=== PATIENT | female | born 2005 | race African-American/Black ===

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

== ENCOUNTER 2024-01-10 08:56 | Emergency (ER) | payer OTHER ==
[~2024-01-10] VITALS: Ht 162.6 cm; Wt 63.9 kg
[2024-01-10 11:33] VITALS: BP 130/92; TEMP 98.1; O2SAT 98
== END 2024-01-10 11:39 | disposition home or self-care (01) ==
LOC: M ED 08:56
DX: J06.9 Acute upper respiratory infection, unspecified (principal); Z88.0 Allergy status to penicillin; Z88.8 Allergy status to other drugs, medicaments and biological substances

== ENCOUNTER 2024-01-14 11:23 | Emergency (ER) | payer OTHER ==
[~2024-01-14] VITALS: Ht 165.1 cm; Wt 62.8 kg
[2024-01-14] MEDS ORDERED: VENTAER INH (14:23)
[2024-01-14 14:28] VITALS: BP 120/81; TEMP 96.9; O2SAT 100
== END 2024-01-14 14:29 | disposition home or self-care (01) ==
LOC: M ED 11:23
DX: J45.909 Unspecified asthma, uncomplicated (principal); Z88.0 Allergy status to penicillin; Z79.51 Long term (current) use of inhaled steroids

== ENCOUNTER 2024-01-28 20:37 | Emergency (ER) | payer OTHER ==
[~2024-01-28] VITALS: Ht 163.8 cm; Wt 62.7 kg
[2024-01-28 22:58] VITALS: BP 106/67; TEMP 98.2; O2SAT 97
[2024-01-29] MEDS ORDERED: BACT800T5 PO (00:08)
[2024-01-29] MEDS: BACTRIM 160MG/800MG DS TAB PO ONE (00:26)
[2024-01-29] MEDS: BOOSTRIX VACCINE (TETANUS/DIPHTH/ACEL. PERTUSSIS) 0.5ML SYR IM ONE (00:29)
[2024-01-29] MEDS: NEOSPORIN TOP OINT 15GM TOP ONE (00:32)
== END 2024-01-29 00:38 | disposition home or self-care (01) ==
LOC: M ED 20:37
DX: S80.811A Abrasion, right lower leg, initial encounter (principal); S90.812A Abrasion, left foot, initial encounter; Y92.019 Unspecified place in single-family (private) house as the place of occurrence of the external cause; Y93.9 Activity, unspecified; Y99.9 Unspecified external cause status; Z88.0 Allergy status to penicillin; Z79.51 Long term (current) use of inhaled steroids; Z79.899 Other long term (current) drug therapy; Z23 Encounter for immunization

== ENCOUNTER 2024-07-13 12:51 | Emergency (ER) | payer OTHER ==
[~2024-07-13] VITALS: Ht 162.6 cm; Wt 61.0 kg
[~2024-07-13 12:51] MED LIST changes: +BACT800T5 PO
[2024-07-13 12:55] VITALS: BP 129/93; TEMP 98.8; O2SAT 97
== END 2024-07-13 14:58 | disposition left against medical advice (07) ==
LOC: M ED 12:51
DX: Z53.21 Procedure and treatment not carried out due to patient leaving prior to being seen by health care provider (principal)